=== PATIENT | male | born 1985 | race African-American/Black ===

== ENCOUNTER 2019-06-29 22:21 | Emergency (ER) | payer OTHER ==
[~2019-06-29] VITALS: Ht 185.4 cm; Wt 108.9 kg
[~2019-06-29 22:21] MED LIST: SULF1TAB12 PO
[2019-06-29 22:28] VITALS: BP 164/107
[2019-06-29 23:20] VITALS: BP 147/95
== END 2019-06-29 23:20 | disposition left against medical advice (07) ==
LOC: MED 22:21
DX: R22.1 Localized swelling, mass and lump, neck (principal)
CPT/HCPCS: 99283

== ENCOUNTER 2021-12-04 18:01 | Emergency (ER) | payer OTHER ==
[~2021-12-04 18:01] MED LIST changes: +SULF-954 PO; -SULF1TAB12 PO
--- NOTE | 2021-12-04 20:55 | NUR ---
CALLED TO TRIAGE X 3, 15 MINUTES APART. CALLED BY MICHAEL NAVARRETE, NO ANSWER. PT LWBS
== END 2021-12-04 20:55 | disposition left against medical advice (07) ==
LOC: MED 18:01
DX: R11.10 Vomiting, unspecified (principal); E86.0 Dehydration; Z53.21 Procedure and treatment not carried out due to patient leaving prior to being seen by health care provider

== ENCOUNTER 2023-08-10 00:33 | Emergency (ER) | payer MEDICAID, OTHER ==
[~2023-08-10] VITALS: Ht 185.4 cm; Wt 116.1 kg
[2023-08-10 01:09] VITALS: BP 199/128; PULSE 113; RESP 14; TEMP 97.7; O2SAT 98
[2023-08-10 01:15] VITALS: O2SAT 98
[2023-08-10] MEDS: NIFEdipine 30 MG TABER PO ONE (02:10)
[2023-08-10 02:17] LABS: BASOPHILS % (AUTO) 0.3 % (0.0-2.0); EOSINOPHILS # (AUTO) 0.1 K/uL (0-0.4); EOSINOPHILS % (AUTO) 1.2 % (0.0-4.0); HEMATOCRIT 45.6 % (36-52); HEMOGLOBIN 15.4 g/dL (12.0-18.0); LYMPHOCYTES # (AUTO) 2.2 K/uL (2.0-11.5); LYMPHOCYTES % (AUTO) 22.9 % (20.5-51.1); MEAN CORPUSCULAR HEMOGLOBIN 30 pg (27-31); MEAN CORPUSCULAR HGB CONC 34 g/dL (33-37); MEAN CORPUSCULAR VOLUME 87.6 fL (80-94); MONOCYTES # (AUTO) 0.9 K/uL (0.8-1.0); MONOCYTES % (AUTO) 9.8 % (1.7-9.3); NEUTROPHILS # (AUTO) 6.4 K/uL (1.8-7.7); NEUTROPHILS % (AUTO) 65.8 % (42.2-75.2); PLATELET COUNT (AUTO) 185 K/uL (140-450); RED BLOOD CELL COUNT(AUTO) 5.21 MIL/uL (4.20-6.10); RED CELL DISTRIBUTION WIDTH 14.3 % (11.6-13.7); WHITE BLOOD COUNT (AUTO) 9.7 K/uL (4.8-10.8)
[2023-08-10 02:38] LABS: ALANINE AMINOTRANSFERASE 15 U/L (12-78); ALBUMIN 3.9 g/dL (3.4-5.0); ALKALINE PHOSPHATASE 74 U/L (50-136); ANION GAP 12.4 (8-16); ASPARTATE AMINOTRANSFERASE 13 U/L (15-37); CALCIUM 9.4 mg/dL (8.5-10.1); CARBON DIOXIDE 28.3 mmol/L (21-32); CHLORIDE 102 mmol/L (98-107); CREATININE 0.9 mg/dL (0.6-1.3); GFR ARICAN-AMERICAN 121 mL/min (>90); GFR NON ARICAN-AMERICAN 100 mL/min (>90); GLUCOSE 99 mg/dL (74-106); POTASSIUM 3.7 mmol/L (3.5-5.1); SODIUM SERUM 139 mmol/L (136-145); TOTAL BILIRUBIN 0.3 mg/dL (0.0-1.0); TOTAL PROTEIN, SERUM 8.2 g/dL (6.4-8.2); UREA NITROGEN, BLOOD 13 mg/dL (7-18)
[2023-08-10] MEDS ORDERED: AZIT250T4 PO (02:55)
[2023-08-10] MEDS ORDERED: IBUP-1842 PO (02:55)
[2023-08-10] MEDS ORDERED: MAG355OR2 PO (02:55)
[2023-08-10] MEDS ORDERED: NIFE30TE5 PO (02:55)
[2023-08-10 03:11] VITALS: BP 156/116; PULSE 98; RESP 14; TEMP 97.7; O2SAT 99
== END 2023-08-10 03:11 | disposition home or self-care (01) ==
LOC: MED 00:33
DX: R07.89 Other chest pain (principal); J18.8 Other pneumonia, unspecified organism; I10 Essential (primary) hypertension; Z79.899 Other long term (current) drug therapy; F17.210 Nicotine dependence, cigarettes, uncomplicated; Z71.6 Tobacco abuse counseling
CPT/HCPCS: 36415; 71045; 80053; 84484; 85025; 85379; 93005; 99285

== ENCOUNTER 2023-12-05 20:11 | Emergency (ER) | payer MEDICAID, OTHER ==
[~2023-12-05] VITALS: Ht 185.4 cm; Wt 108.1 kg
[~2023-12-05 20:11] MED LIST changes: +AZIT250T4 PO; +IBUP-1842 PO; +MAG355OR2 PO; +NIFE30TE5 PO
[2023-12-05 20:43] VITALS: BP 171/122; PULSE 111; RESP 22; TEMP 100; O2SAT 95
[2023-12-05 21:58] VITALS: BP 171/122; PULSE 111; RESP 22; TEMP 100; O2SAT 95
[2023-12-07 09:06] LABS: HEPATITIS C AB Non Reactive (Non Reactive)
== END 2023-12-05 21:58 | disposition home or self-care (01) ==
LOC: MED 20:11
DX: Z11.4 Encounter for screening for human immunodeficiency virus [HIV] (principal); R00.0 Tachycardia, unspecified; I10 Essential (primary) hypertension; Z79.899 Other long term (current) drug therapy
CPT/HCPCS: 36415; 82948; 86804; 87522; 99283